=== PATIENT | male | born 1985 | race Caucasian/White ===

== ENCOUNTER 2021-11-03 16:45 | Emergency (ER) | payer BC ==
[2021-11-03 16:59] VITALS: BP 122/82; PULSE 83; RESP 18; TEMP 98; BMI 27.3
== END 2021-11-03 17:46 | disposition home or self-care (01) ==
LOC: JERFT 16:45
DX: M26.602 Left temporomandibular joint disorder, unspecified (principal)
CPT/HCPCS: 99281-25